=== PATIENT | male | born 1990 | race African-American/Black ===

== ENCOUNTER 2018-01-08 20:05 | Emergency (ER) | payer OTHER ==
[2018-01-09] MEDS: LIDOCAINE 2% MDV 20 ML VIAL SC (00:15)
== END 2018-01-09 00:34 | disposition home or self-care (01) ==
LOC: M ED 01-09 00:34
DX: L02.31 Cutaneous abscess of buttock (principal); J45.909 Unspecified asthma, uncomplicated; Z79.899 Other long term (current) drug therapy
CPT/HCPCS: 10060

== ENCOUNTER 2018-07-21 20:04 | Emergency (ER) | payer OTHER ==
[~2018-07-21] VITALS: Ht 170.2 cm; Wt 81.8 kg
[~2018-07-21 20:04] MED LIST: ADV100INH INH; PROAAER10 INH
[2018-07-21] MEDS ORDERED: SUMA50TA2 PO (20:13)
[2018-07-21] MEDS ORDERED: DICYCLOMINE 10 MG CAP PO ONE (21:00)
[2018-07-21] MEDS ORDERED: IBUPROFEN 600 MG TAB PO ONE (21:00)
[2018-07-21 21:11] LABS: BASO % 0.4 % (0.0-1.0); EOS # 0.1 10^3/uL (0.0-0.50); EOS % 0.7 % (0.0-3.0); HEMATOCRIT 41.8 % (42.0-52.0); HEMOGLOBIN 13.7 g/dl (13.5-17.5); LYMPH # 2.6 10^3/uL (1.5-6.5); LYMPH % 31.9 % (24.0-44.0); MEAN CORPUSCULAR HEMOGLOBIN 27.3 pg (27.0-33.0); MEAN CORPUSCULAR HGB CONC 32.8 g/dl (32.0-36.5); MEAN CORPUSCULAR VOLUME 83.4 fl (80.0-96.0); MONO # 0.5 10^3/uL (0.0-0.8); MONO % 5.8 % (0.0-5.0); PLATELET COUNT, AUTOMATED 235 10^3/uL (150-450); RED BLOOD COUNT 5.01 10^6/uL (4.30-6.10); WHITE BLOOD COUNT 8.2 10^3/uL (4.0-10.0)
[2018-07-21 21:40] LABS: BLOOD UREA NITROGEN 21 MG/DL (7-18); CALCIUM LEVEL 8.8 MG/DL (8.5-10.1); CARBON DIOXIDE LEVEL 27 MEQ/L (21-32); CHLORIDE LEVEL 104 MEQ/L (98-107); CREATININE FOR GFR 1.25 MG/DL (0.70-1.30); GLOMERULAR FILTRATION RATE > 60.0 (>60); GLUCOSE, FASTING 74 MG/DL (70-100); POTASSIUM SERUM 4.2 MEQ/L (3.5-5.1); SODIUM LEVEL 139 MEQ/L (136-145)
[2018-07-21] MEDS ORDERED: CIPR-249 PO (21:53)
[2018-07-21] MEDS ORDERED: DICY1CAP8 PO (21:53)
[2018-07-21 21:54] VITALS: BP 120/60
[2018-07-21] MEDS ORDERED: CIPROFLOXACIN 500 MG TAB PO ONE (22:00)
--- NOTE | 2018-07-22 10:45 | REP ---
ACUTE ABDOMINAL SERIES: 07/21/2018: Clinical history: Central abdominal pain, diarrhea. Findings: PA chest: No prior study. The lung olmedo are well inflated. The CP angles sharply defined. There is no infiltrate, atelectasis or mass. Heart, mediastinal or hilar contours are normal. Aorta and airway intact bony thorax shows no focal lesion. Flat upright abdomen: There is no free air under the diaphragm. Scattered stool and gas in the left and transverse colon to the splenic flexure. No dilated loops. Small bowel loops are fluid filled without air-fluid levels, masses nor evidence of free air on this study. No abnormal calcifications. Bones intact. Impression: 1. Nonspecific gas pattern without obstruction, mass or free air. Small bowel loops are mostly fluid-filled without air-fluid levels or dilatation. No colon distension. 2. No abnormal calcification or mass. 3. PA chest negative. Electronically Signed by Jamison Gonzales MD 07/22/2018 02:24 P
== END 2018-07-21 22:06 | disposition home or self-care (01) ==
LOC: M ED 20:04
DX: R19.7 Diarrhea, unspecified (principal); R10.84 Generalized abdominal pain; K59.00 Constipation, unspecified; J45.909 Unspecified asthma, uncomplicated; G43.909 Migraine, unspecified, not intractable, without status migrainosus; Z79.51 Long term (current) use of inhaled steroids; Z79.899 Other long term (current) drug therapy

== ENCOUNTER → 2018-07-24 | Outpatient (CLI) | payer OTHER ==
[~2018-07-24] MED LIST changes: +CIPR-249 PO; +DICY1CAP8 PO; +SUMA50TA2 PO
--- NOTE | 2018-07-24 13:33 | REP ---
CT abdomen and pelvis without IV or oral contrast: Renal stone protocol. History: Abdomen pain times 3 weeks. Unresolved diarrhea. Comparison radiographs are from July 21, 2018. CT findings: Digital preliminary door technician radiograph demonstrates an unremarkable bowel gas pattern. Some clothing artifact. Axial CT images demonstrate that the lung bases are clear. The liver and the spleen are normal in size and homogeneous in texture. No adrenal lesion is observed on either side. No pancreatic abnormalities observed. The gallbladder is small but appears intact. There is relatively little intra-abdominal fat. A normal appendix is seen in the right central abdomen. There is no evidence of hydronephrosis on either side. No intrarenal calculus is seen. No ureteral stone is observed. No bladder calculus is seen. There are phleboliths in the pelvis. Seminal vesicles and prostate are unremarkable. No abdominal wall defect is seen. No large or small bowel dilation is observed. No obstructive changes. No evidence of free intraperitoneal air or fluid. Impression: No acute intra-abdominal abnormality. Electronically Signed by Demetrio Ibarra MD 07/24/2018 05:33 P
== END ==
LOC: M RAD 11:52
PROVIDERS: ATTEND Nurse Practitioner
DX: R10.9 Unspecified abdominal pain (principal)